=== PATIENT | male | born 1990 | race Caucasian/White ===

== ENCOUNTER 2024-04-25 22:15 | Emergency (ER) | payer BC ==
[~2024-04-25] VITALS: Ht 180.3 cm; Wt 77.1 kg
[2024-04-26 01:23] VITALS: BP 126/89; TEMP 98; O2SAT 99
== END 2024-04-26 01:24 | disposition home or self-care (01) ==
LOC: ER 22:30
DX: A49.02 Methicillin resistant Staphylococcus aureus infection, unspecified site (principal); M79.661 Pain in right lower leg
CPT/HCPCS: 93971-TC